=== PATIENT | male | born 2000 | race Hispanic/Latino ===

== ENCOUNTER 2022-07-20 01:25 | Emergency (ER) | payer OTHER ==
[2022-07-20] MEDS ORDERED: diphenhydrAMINE 25 MG CAP ONE (01:53)
[2022-07-20] MEDS ORDERED: predniSONE 20 MG TAB ONE (01:53)
== END 2022-07-20 02:00 | disposition home or self-care (01) ==
LOC: BURERS 01:25
DX: T78.40XA Allergy, unspecified, initial encounter (principal)
CPT/HCPCS: 99283; J7512